=== PATIENT | female | born 1985 | race African-American/Black ===

== ENCOUNTER 2017-07-17 13:14 | Emergency (ER) | payer MEDICAID ==
[~2017-07-17] VITALS: Ht 167.6 cm; Wt 86.1 kg
[2017-07-17 13:16] VITALS: BP 147/101
[2017-07-17] MEDS ORDERED: METHYLPREDNISOLONE SOD SUCC 125 MG/2 ML VIAL IM ONE (15:00)
== END 2017-07-17 17:56 | disposition home or self-care (01) ==
LOC: ER 17:38
DX: T78.40XA Allergy, unspecified, initial encounter (principal); X58.XXXA Exposure to other specified factors, initial encounter
CPT/HCPCS: 96372; 99283; J2930

== ENCOUNTER 2017-07-27 12:20 | Emergency (ER) | payer MEDICAID ==
[~2017-07-27] VITALS: Ht 167.6 cm; Wt 86.0 kg
[2017-07-27] MEDS ORDERED: DEXAMETHASONE 10 MG/ML VIAL IM ONE (14:45)
[2017-07-27 17:30] VITALS: BP 170/100
== END 2017-07-27 17:31 | disposition home or self-care (01) ==
LOC: ER 14:06
DX: T78.3XXA Angioneurotic edema, initial encounter (principal); Y92.89 Other specified places as the place of occurrence of the external cause
CPT/HCPCS: 96372; 99283; J1100

== ENCOUNTER 2017-09-24 10:42 | Emergency (ER) | payer MEDICAID ==
[~2017-09-24] VITALS: Ht 167.6 cm; Wt 89.0 kg
[2017-09-24] MEDS ORDERED: PREDNISONE 20MG TABLET PO STA (13:25)
[2017-09-24 15:46] VITALS: BP 140/94
== END 2017-09-24 15:47 | disposition home or self-care (01) ==
LOC: ER 10:57
DX: T78.3XXA Angioneurotic edema, initial encounter (principal)
CPT/HCPCS: 99283; J7512